=== PATIENT | male | born 1995 | race Hispanic/Latino ===

== ENCOUNTER 2020-03-10 20:48 | Observation (INO) | payer MEDICAID, SELFPAY ==
[2020-03-10] MEDS ORDERED: Morphine 4 MG/ML VIAL ONE (21:09)
[2020-03-10] MEDS ORDERED: Ondansetron PF 4 MG/2 ML Vial ONE (21:09)
[2020-03-10 21:23] LABS: #Basophils 0.1 thou/uL (0.0-0.2); #Eosinphils 0.4 thou/uL (0.0-0.7); #Lymphocytes 2.4 thou/uL (1.20-3.40); #Monocytes 1.2 thou/uL (0.11-0.59); #Neutrophils 8.5 thou/uL (1.40-6.50); %Basophils 0.8 % (0.0-1.0); %Eosinophils 3.3 % (0.0-10.0); %Lymphocytes 19.2 % (21.0-51.0); %Monocytes 9.4 % (0.0-10.0); %Neutrophils 67.2 % (42.0-75.0); Hemoglobin 16.7 g/dL (14.0-18.0); Mean Corpuscular HGB CONC 34.2 g/dL (32.0-36.0); Mean Corpuscular Hemoglobin 32.4 pg (27.0-31.0); Mean Corpuscular Volume 94.7 fL (78.0-98.0); Mean Platelet Volume 8.8 fL (7.4-10.4); Platelet Count 245 thou/uL (130-400); RBC Distribution Width 11.9 % (11.5-14.5); Red Blood Cell (RBC) Count 5.15 mill/uL (4.70-6.10); White Blood Cell (WBC) Count 12.6 thou/uL (4.8-10.8)
[2020-03-10 21:47] LABS: ALT (SGPT) 91 U/L (8-55); AST (SGOT) 40 U/L (5-34); Albumin 4.6 g/dL (3.5-5.0); Alkaline Phosphatase 100 U/L (40-110); Anion Gap 14 mmol/L (10-20); BUN (Urea Nitrogen) 17 mg/dL (8.9-20.6); Bilirubin, Total 1.2 mg/dL (0.2-1.2); Calc. Creatinine Clearance 0 mL/min (70-130); Calcium 8.9 mg/dL (7.8-10.44); Carbon Dioxide 26 mmol/L (22-29); Chloride 102 mmol/L (98-107); Estimated GFR-MDRD 86; Glucose 100 mg/dL (70-105); Lipase 43 U/L (8-78); Potassium 3.7 mmol/L (3.5-5.1); Protein, Total 7.6 g/dL (6.0-8.3); Sodium 138 mmol/L (136-145)
[2020-03-10] MEDS ORDERED: Piperacillin/Tazobactam 3.375 GM VIAL ONE (23:33)
[2020-03-11] MEDS ORDERED: Dextrose 5% in Water 1,000 ML IV PRN (01:52)
[2020-03-11] MEDS ORDERED: hydrALAZINE 20 MG/ML VIAL SLOW IVP PRN (01:52)
[2020-03-11] MEDS ORDERED: Ondansetron PF 4 MG/2 ML Vial IVP PRN (01:52)
[2020-03-11] MEDS ORDERED: Morphine 2 MG/ML SYRINGE SLOW IVP PRN (01:52)
[2020-03-11] MEDS ORDERED: Dextrose 50% Abboject 50 ML SYRINGE SLOW IVP PRN (01:52)
[2020-03-11] MEDS ORDERED: Morphine 4 MG/ML VIAL SLOW IVP PRN (01:52)
[2020-03-11 01:59] VITALS: BMI 34.4
[2020-03-11] MEDS: Sodium Chloride 0.9% 1,000 ML IV SCH ×2 (02:21→11:17)
--- NOTE | 2020-03-11 03:08 | HP ---
GENERAL SURGEON: Dr. Rubio. CONSULTING PHYSICIAN: None. HISTORY OF PRESENT ILLNESS: The patient is a 24-year-old male, who presented to the emergency department complaining of right upper abdominal pain. The patient reports the pain started about 6 p.m. and he reported to the emergency department shortly after that. He states it started after eating watermelon and pain medications he received in the emergency department has helped. He denies nausea, vomiting, and diarrhea. Last bowel movement was about 3 hours before his pain started. He reports no alcohol consumption in the past 24 hours. He reports he drinks a couple beers after work most days. He denies tobacco, drug, and alcohol use. He is comfortable at the time of my evaluation. REVIEW OF SYSTEMS: All additional 10-point review of systems negative except as indicated above. PAST MEDICAL HISTORY: None. PAST SURGICAL HISTORY: None. SOCIAL HISTORY: The patient drinks a couple of 2 to 3 beers after work most days. He denies tobacco, drug, and alcohol use. He denies drug and tobacco use. No alcohol consumption today. MEDICATIONS: None. ALLERGIES: NO KNOWN DRUG ALLERGIES. PHYSICAL EXAMINATION: VITAL SIGNS: Temperature 98.1, pulse 68, respirations 18, oxygen saturation 97% on room air, and blood pressure 138/94. GENERAL: Well-appearing young male, sitting up in bed with no signs of acute distress. PULMONARY: Equal chest rise and fall. Clear breath sounds bilaterally. No signs of acute respiratory distress. CARDIAC: Regular rate and rhythm. No murmurs, gallops, or rubs. GI: Soft, tender in the right upper quadrant mildly and nondistended. EXTREMITIES: 2+ pulses in all extremities. Gross motor and sensation intact. LABORATORY FINDINGS: White count 12.6, hemoglobin 16.7, hematocrit 48.8, platelets 245. Sodium 138, potassium 3.7, chloride 102, bicarb 26, BUN 17, creatinine 1.07, glucose 100, total bilirubin 1.2, AST 40, ALT 41, lipase 43. DIAGNOSTIC FINDINGS: Abdominal ultrasound of the right upper quadrant demonstrated dilated gallbladder with stones. No pericholecystic fluid. Pending official report. This imaging was reviewed with Dr. Rubio. ASSESSMENT: Acute cholecystitis and cholelithiasis. PLAN: The patient has been admitted to the Trauma Service. Dr. Rubio plans to take the patient to the OR tomorrow for a laparoscopic cholecystectomy. I did discuss the surgery with the patient, who agrees. I did discuss the risks and benefits. He reported he would like to proceed with surgery. The patient will be n.p.o. and receive normal saline at 120 an hour. He will have p.r.n. pain medications via IV. We will repeat blood work in the morning. This patient was discussed with Dr. Rubio before this dictation. Job ID: [id number]
[2020-03-11 06:06] LABS: ALT (SGPT) 70 U/L (8-55); AST (SGOT) 30 U/L (5-34); Albumin 3.9 g/dL (3.5-5.0); Alkaline Phosphatase 81 U/L (40-110); Anion Gap 10 mmol/L (10-20); BUN (Urea Nitrogen) 11 mg/dL (8.9-20.6); Bilirubin, Total 1.3 mg/dL (0.2-1.2); Calc. Creatinine Clearance 175 mL/min (70-130); Calcium 8.4 mg/dL (7.8-10.44); Carbon Dioxide 23 mmol/L (22-29); Chloride 108 mmol/L (98-107); Estimated GFR-MDRD Greater than 90; Globulin 2.3 g/dL (2.4-3.5); Glucose 95 mg/dL (70-105); Magnesium 2.1 mg/dL (1.6-2.6); Phosphorus 3.7 mg/dL (2.3-4.7); Potassium 3.9 mmol/L (3.5-5.1); Protein, Total 6.2 g/dL (6.0-8.3); Sodium 137 mmol/L (136-145)
[2020-03-11 06:10] LABS: Hemoglobin 15.1 g/dL (14.0-18.0); Mean Corpuscular HGB CONC 33.6 g/dL (32.0-36.0); Mean Corpuscular Volume 95.1 fL (78.0-98.0); Mean Platelet Volume 9.4 fL (7.4-10.4); Platelet Count 215 thou/uL (130-400); RBC Distribution Width 11.9 % (11.5-14.5); Red Blood Cell (RBC) Count 4.73 mill/uL (4.70-6.10); White Blood Cell (WBC) Count 10.8 thou/uL (4.8-10.8)
[2020-03-11 07:20] LABS: Band 5 % (5-11); Eosinophils 4 % (0-10); Lymphocytes 21 % (21-51); MDiff Complete? YES; Monocytes 7 % (0-10); Neutrophil 63 % (42-75)
--- NOTE | 2020-03-11 07:37 | ULT ---
ULTRASOUND GALLBLADDER RIGHT UPPER QUADRANT: HISTORY: Right upper quadrant pain. COMPARISON: None. FINDINGS: Real-time, caban scale, and color evaluation of the right upper quadrant of the abdomen was performed. Projected portion of the pancreas is unremarkable. Marked increased of hepatic echotexture. The gallbladder is mildly distended with the wall at the upper limits of normal in thickness of 3 mm. No significant pericholecystic fluid. The common duct is normal measuring 3 mm. There is cholelithiasis. The right kidney is small measuring 8.4 x 3.6 x 3.9 cm. IMPRESSION: 1. Cholelithiasis with a mildly distended and thick-walled gallbladder can be seen with acute cholec ystitis in the correct clinical setting. The sonographic Sharpe's sign is positive. 2. Markedly diffuse increased hepatic echotexture suggesting steatosis. POS: HOME
[2020-03-11] MEDS ORDERED: Fentanyl 100 MCG/2 ML VIAL ONE (08:11)
[2020-03-11] MEDS ORDERED: Bupivacaine PF 0.5% 30 ML VIAL ONE (08:25)
[2020-03-11] MEDS ORDERED: Lidocaine 1% w/Epinephrine 1:100K 20 ML VIAL ONE (08:25)
[2020-03-11] MEDS ORDERED: Famotidine/PF 20 mg/2ml Vial SLOW IVP SCH (09:00)
[2020-03-11] MEDS ORDERED: Promethazine HCl 25 MG/ML VIAL SLOW IVP PRN (09:15)
[2020-03-11] MEDS ORDERED: Promethazine HCl 25 MG/ML VIAL IM PRN (09:15)
[2020-03-11] MEDS ORDERED: HYDROmorphone 2 MG/ML VIAL SLOW IVP PRN (09:15)
[2020-03-11] MEDS ORDERED: Meperidine HCl/PF 25 MG/ML VIAL SLOW IVP PRN (09:15)
[2020-03-11] MEDS ORDERED: SUGAMMADEX SODIUM 200 MG/2 ML VIAL ONE (09:30)
[2020-03-11] MEDS ORDERED: traMADol HCl 50 MG TAB PO PRN ×2 (10:27)
--- NOTE | 2020-03-11 10:46 | OP ---
DATE OF PROCEDURE: 03/11/2020 PREOPERATIVE DIAGNOSES: Acute cholecystitis and cholelithiasis. POSTOPERATIVE DIAGNOSES: Acute cholecystitis and cholelithiasis. PROCEDURE PERFORMED: Laparoscopic cholecystectomy. ANESTHESIA: General endotracheal. ESTIMATED BLOOD LOSS: 30 mL. FLUIDS GIVEN: 1100 mL crystalloids. COUNTS: Sponge and instrument counts were verified as correct x2. COMPLICATIONS: None apparent at the time of operation. INDICATIONS FOR OPERATION: This is a 24-year-old man who presented with recurrent epigastric right upper quadrant abdominal pain. Clinical and radiographic examination were consistent with acute cholecystitis and cholelithiasis, for which the patient was brought to the operating room for cholecystectomy. Findings are consistent with markedly distended gallbladder in the usual anatomic location, partially encased by omental adhesions. DESCRIPTION OF PROCEDURE: Informed consent was obtained from the patient, who was brought to the operating room and placed in supine position. Following general anesthesia, abdomen was sterilely prepped and draped in usual fashion. The skin below the umbilicus was infiltrated with 0.25% Marcaine with epinephrine. A small curvilinear infraumbilical incision was made using 11 scalpel. Umbilical stalk was grasped with Elton and elevated. Veress needle was inserted through the incision and placed in the peritoneal cavity through which the abdomen was insufflated with 2 L of CO2 gas. Intraabdominal pressure was noted at 2 mmHg. Following abdominal insufflation, Veress needle was removed and a 5 mm trocar introduced using a Visiport under laparoscopy. Laparoscopy confirmed proper placement of the port, no injuries to underlying structures. Additional laparoscopy reveals the right upper quadrant encased by omental adhesions. Under direct laparoscopy, a 12 mm epigastric and two 5 mm right lateral subcostal ports were placed after the overlying skin were infiltrated with 0.25% Marcaine with epinephrine and appropriate incision was made. The patient was placed in a reverse Trendelenburg position, rotated to his left. I used a [place] dissector to take down omental adhesions to reveal the fundus of the gallbladder. A Prestige grasper introduced through the right lateral subcostal port grasping the fundus of the gallbladder, which was elevated cephalad. Omental adhesions were then bluntly dissected off the remainder of the gallbladder. A second Prestige grasper introduced through the right medial subcostal port grasping the Gene pouch, which was retracted laterally. The peritoneum of the gallbladder was opened at the gallbladder neck. The cystic duct and artery were dissected free from surrounding structures high at the level of the gallbladder. I did not visualize the common bile duct. The cystic duct was then divided between clips applying 2 clips proximally and one clip at the junction of the cystic duct and gallbladder. Cystic artery divided between clips in a similar fashion. The gallbladder itself was removed from the liver bed using cautery and delivered off the abdominal cavity using an EndoCatch. The gallbladder fossa was oozing of venous blood. Hemostasis was achieved readily using Juan. Finding no other pathology, laparoscopy was terminated. Fascia of the epigastric port closed using 0 Vicryl suture and Endoclosure device on the laparoscopy. The abdomen was desufflated. All ports and instruments removed and accounted for. Skin incisions were closed using 4-0 Monocryl suture in subcuticular fashion. Dermabond was applied over incisional closure. The patient tolerated the operation without any apparent complication and was returned to recovery room in satisfactory condition. Job ID: [id number]
[2020-03-11 11:16] VITALS: BP 127/78; TEMP 98.2
[2020-03-11] MEDS ORDERED: Acetaminophen 500 MG TAB PO SCH (12:00)
[2020-03-11] MEDS ORDERED: Ondansetron PF 4 MG/2 ML Vial ONE (15:31)
[2020-03-11] MEDS ORDERED: Ketorolac Tromethamine 30 MG/ML VIAL ONE (15:31)
[2020-03-11] MEDS ORDERED: Lidocaine 1% PF 5 ML VIAL ONE (15:31)
[2020-03-11] MEDS ORDERED: Dexamethasone 20 MG/5 ML VIAL ONE (15:31)
[2020-03-11] MEDS ORDERED: Rocuronium Bromide 10 MG/ML (10ML VIAL) ONE (15:31)
[2020-03-11] MEDS ORDERED: PROPOFOL 200 MG/20 ML VIAL ONE (15:31)
== END 2020-03-11 16:27 | disposition home or self-care (01) ==
LOC: ERS 20:48 → SURG A 03-11 01:50
PROVIDERS: ADMIT Surgery; ATTEND Surgery
PROC: 0FT44ZZ Resection of Gallbladder, Percutaneous Endoscopic Approach (ICD-10-PCS; principal; 2020-03-11)
DX: K80.12 Calculus of gallbladder with acute and chronic cholecystitis without obstruction (principal)
CPT/HCPCS: 36415; 76705; 80053; 80307; 83690; 83735; 84100; 85007; 85025; 85027; 88304; 96361; 96365; 96366; 96375; G0378; J0690; J1100; J1885; J2001; J2270; J2405; J2543; J2704; J3010; S0020